=== PATIENT | female | born 1995 | race African-American/Black ===

== ENCOUNTER 2016-11-04 15:13 | Emergency (ER) | payer SELFPAY ==
[~2016-11-04] VITALS: Ht 157.5 cm; Wt 74.8 kg
[2016-11-04 15:33] VITALS: BP 111/58
[2016-11-04 16:52] LABS: Urine Bilirubin Negative (Negative); Urine Blood Negative /uL (Negative); Urine Color Yellow (Yellow); Urine Glucose Normal (Normal); Urine Ketone Negative (Negative); Urine Mucus FEW (None Seen); Urine Nitrite Negative (Negative); Urine RBC 4 /hpf (0 - 4); Urine Squamous Epithelial Cell FEW /hpf (<5); Urine Urobilinogen Normal (Negative); Urine pH 5.5 (5.0-8.0)
[2016-11-04 16:58] LABS: Basophils # (auto) 0.1 uL; Basophils % (auto) 0.5 % (0.0-2.0); CONDITION Y; DEFINITIVE SEE PRINTOUT; Eosinophils # (auto) 0.2 uL; Eosinophils % (auto) 1.8 % (0.0-7.0); Hematocrit 32.7 % (36.0-46.0); Hemoglobin 10.7 g/dL (12.2-16.2); Lymphocytes # (auto) 1.4 uL; Lymphocytes % (auto) 10.8 % (10.0-50.0); Mean Corpuscular Hemoglobin 25.7 pg (28.0-32.0); Mean Corpuscular Hgb Conc. 32.8 g/dL (32.0-36.0); Mean Corpuscular Volume 78.2 fL (80.0-100.0); Mean Platelet Volume 10.1 fL (7.4-10.4); Monocytes % (auto) 7.9 % (0.0-12.0); Neutrophils # (auto) 9.9 uL; Platelet Count (auto) 286 10^3/uL (140-450); Red Cell Distribution Width 15.4 % (11.6-16.0); SUSPECT SEE PRINTOUT; White Blood Cell 12.6 10^3/uL (4.4-10.8)
[2016-11-04 17:20] LABS: BUN/Creatinine Ratio 14.3; Calcium 8.5 mg/dL (8.5-10.1); Potassium 3.8 mmol/L (3.5-5.1)
[2016-11-04] MEDS ORDERED: ACETAMINOPHEN 325 MG TAB PO ONE (17:45)
== END 2016-11-04 17:55 | disposition home or self-care (01) ==
LOC: ER 15:18 → EDBD 15:18 → ER 17:55
DX: Z32.01 Encounter for pregnancy test, result positive (principal); N39.0 Urinary tract infection, site not specified
CPT/HCPCS: 36415; 80048; 81001; 81025; 84702; 85025

== ENCOUNTER 2016-11-14 08:42 | Emergency (ER) | payer SELFPAY ==
[~2016-11-14] VITALS: Ht 157.5 cm; Wt 76.7 kg
[2016-11-14 08:58] VITALS: BP 107/59
[2016-11-14 09:33] LABS: Basophils # (auto) 0 uL; Basophils % (auto) 0.5 % (0.0-2.0); CONDITION Y; DEFINITIVE SEE PRINTOUT; Eosinophils # (auto) 0.2 uL; Eosinophils % (auto) 1.9 % (0.0-7.0); Hematocrit 34.5 % (36.0-46.0); Hemoglobin 11.4 g/dL (12.2-16.2); Lymphocytes # (auto) 1.9 uL; Lymphocytes % (auto) 20.6 % (10.0-50.0); Mean Corpuscular Hemoglobin 25.6 pg (28.0-32.0); Mean Corpuscular Hgb Conc. 32.9 g/dL (32.0-36.0); Mean Corpuscular Volume 77.9 fL (80.0-100.0); Mean Platelet Volume 9.9 fL (7.4-10.4); Monocytes # (auto) 0.7 uL; Monocytes % (auto) 7.4 % (0.0-12.0); Neutrophils # (auto) 6.6 uL; Neutrophils % (auto) 69.6 % (37.0-80.0); Platelet Count (auto) 337 10^3/uL (140-450); Red Cell Distribution Width 15.5 % (11.6-16.0); White Blood Cell 9.4 10^3/uL (4.4-10.8)
[2016-11-14 09:57] LABS: Albumin 3.6 g/dL (3.4-5.0); BUN/Creatinine Ratio 13.3; Bilirubin, Total 0.2 mg/dL (0.2-1.0); Calcium 8.8 mg/dL (8.5-10.1); Potassium 3.9 mmol/L (3.5-5.1); Total Protein 7.9 g/dL (6.4-8.2)
== END 2016-11-14 12:11 | disposition home or self-care (01) ==
LOC: ER 08:42
DX: O03.9 Complete or unspecified spontaneous abortion without complication (principal); Z3A.00 Weeks of gestation of pregnancy not specified; Z86.2 Personal history of diseases of the blood and blood-forming organs and certain disorders involving the immune mechanism
CPT/HCPCS: 36415; 76801; 76817; 80053; 84702; 85025

== ENCOUNTER 2017-05-11 11:26 | Emergency (ER) | payer MEDICAID ==
[~2017-05-11] VITALS: Ht 157.5 cm; Wt 72.6 kg
[2017-05-11 12:23] VITALS: BP 103/65
[2017-05-11 12:26] LABS: Basophils # (auto) 0 uL; Eosinophils # (auto) 0.3 uL; Eosinophils % (auto) 3.1 % (0.0-7.0); Lymphocytes # (auto) 2.4 uL; Mean Corpuscular Hemoglobin 25.9 pg (28.0-32.0); Monocytes # (auto) 0.8 uL; Nucleated Red Blood Cells % 0.1 %
[2017-05-11 12:28] LABS: Basophils % (auto) 0.4 % (0.0-2.0); Hematocrit 35.6 % (36.0-46.0); Hemoglobin 11.6 g/dL (12.2-16.2); Lymphocytes % (auto) 25.7 % (10.0-50.0); Mean Corpuscular Hgb Conc. 32.6 g/dL (32.0-36.0); Mean Corpuscular Volume 79.3 fL (80.0-100.0); Monocytes % (auto) 8.1 % (0.0-12.0); Neutrophils # (auto) 5.9 uL; Neutrophils % (auto) 62.7 % (37.0-80.0); Platelet Count (auto) 258 10^3/uL (140-450); Red Blood Cells 4.48 10^6/uL (4.0-5.20); Red Cell Distribution Width 15.2 % (11.8-14.3); White Blood Cell 9.4 10^3/uL (4.4-10.8)
[2017-05-11 12:45] LABS: Albumin 3.9 g/dL (3.4-5.0); BUN/Creatinine Ratio 12.5; Bilirubin, Total 0.2 mg/dL (0.2-1.0); Calcium 8.9 mg/dL (8.5-10.1); Potassium 3.8 mmol/L (3.5-5.1); Total Protein 7.9 g/dL (6.4-8.2)
[2017-05-11 13:25] LABS: Urine Bacteria FEW /hpf (None Seen); Urine Blood Negative /uL (Negative); Urine Mucus FEW (None Seen); Urine Specific Gravity 1.032 (1.001-1.035); Urine WBC 43 /hpf (0 - 5)
== END 2017-05-11 13:55 | disposition home or self-care (01) ==
LOC: ER 11:26
DX: Z32.01 Encounter for pregnancy test, result positive (principal); N39.0 Urinary tract infection, site not specified; R11.0 Nausea
CPT/HCPCS: 36415; 80053; 81001; 84702; 85025

== ENCOUNTER 2017-06-30 10:38 | Emergency (ER) | payer MEDICAID ==
[~2017-06-30] VITALS: Ht 157.5 cm; Wt 80.7 kg
[2017-06-30 12:54] VITALS: BP 116/76
== END 2017-06-30 13:45 | disposition home or self-care (01) ==
LOC: ER 10:38
DX: O23.42 Unspecified infection of urinary tract in pregnancy, second trimester (principal); Z3A.13 13 weeks gestation of pregnancy
CPT/HCPCS: 76801; 81002

== ENCOUNTER 2018-01-15 02:56 | Observation (INO) | payer MEDICAID ==
[~2018-01-15 02:56] MED LIST: PREN-153 OR
[2018-01-15] MEDS ORDERED: FERR27TA2 PO (22:05)
== END 2018-01-15 03:57 | disposition home or self-care (01) | DRG 566 ==
LOC: LDRP 02:56
PROVIDERS: ADMIT Obstetrics & Gynecology; ATTEND Obstetrics & Gynecology
DX: O62.9 Abnormality of forces of labor, unspecified (principal); O99.89 Other specified diseases and conditions complicating pregnancy, childbirth and the puerperium; M54.9 Dorsalgia, unspecified; Z3A.39 39 weeks gestation of pregnancy
CPT/HCPCS: 59025; G0378

== ENCOUNTER 2018-01-15 21:21 | Observation (INO) | payer MEDICAID ==
[2018-01-15] MEDS ORDERED: FERR27TA2 PO (22:05)
== END 2018-01-16 00:24 | disposition home or self-care (01) | DRG 566 ==
LOC: LDRP 21:21
PROVIDERS: ADMIT Specialist; ATTEND Specialist
DX: O62.9 Abnormality of forces of labor, unspecified (principal); Z3A.39 39 weeks gestation of pregnancy
CPT/HCPCS: 59025; G0378

== ENCOUNTER 2018-01-16 19:40 | Observation (INO) | payer MEDICAID ==
[~2018-01-16 19:40] MED LIST changes: +FERR27TA2 PO
[2018-01-16 21:14] LABS: Urine Bacteria NONE SEEN /hpf (None Seen); Urine Blood 1+ /uL (Negative); Urine Mucus FEW (None Seen); Urine Specific Gravity 1.012 (1.001-1.035); Urine WBC 85 /hpf (0 - 5)
[2018-01-16 21:21] LABS: Alcohol, Urine < 3.0 mg/dL (0-5); Amphetamine Screen, Urine NEGATIVE (NEGATIVE); Barbiturate Scree,Urine NEGATIVE (NEGATIVE); Benzodiazephine Screen, Urine NEGATIVE (NEGATIVE); Cannabinoid Screen, Urine NEGATIVE (NEGATIVE); Cocaine Screen, Urine NEGATIVE (NEGATIVE); Opiate Scree,Urine NEGATIVE (NEGATIVE); Phencyclidine Screen, Urine NEGATIVE (NEGATIVE)
[2018-01-16] MEDS ORDERED: hydrOXYzine HCL 25 MG/ML VL IM ONE ×2 (21:21→21:30)
== END 2018-01-16 22:25 | disposition home or self-care (01) | DRG 566 ==
LOC: LDRP 19:40
PROVIDERS: ADMIT Specialist; ATTEND Specialist
DX: O62.9 Abnormality of forces of labor, unspecified (principal); O26.893 Other specified pregnancy related conditions, third trimester; M54.9 Dorsalgia, unspecified; R10.2 Pelvic and perineal pain; O99.89 Other specified diseases and conditions complicating pregnancy, childbirth and the puerperium; Z3A.39 39 weeks gestation of pregnancy
CPT/HCPCS: 59025; 80307; 81001; 81002; 96372; G0378; J3410

== ENCOUNTER 2018-01-17 14:30 | Observation (INO) | payer MEDICAID | END 2018-01-17 16:00 | disposition home or self-care (01) | DRG 566 | LOC: LDRP 14:30 | PROVIDERS: ADMIT Specialist; ATTEND Specialist | DX: O62.9 Abnormality of forces of labor, unspecified (principal); O48.0 Post-term pregnancy; Z3A.40 40 weeks gestation of pregnancy | CPT/HCPCS: 59025; 76818; 81002; G0378 ==

== ENCOUNTER 2018-01-18 07:20 | Inpatient (IN) | payer MEDICAID ==
[~2018-01-18] VITALS: Ht 157.5 cm; Wt 101.2 kg
[2018-01-18] MEDS ORDERED: LACT. RINGERS/OXYTOCIN 20UNITS 1,000 ML IV SCH (07:44)
[2018-01-18] MEDS ORDERED: LACTATED RINGER'S 1,000 ML IV SCH (07:44)
[2018-01-18] MEDS ORDERED: LIDOCAINE 2% (LOCAL ANESTH.) PF 5ml SDV ID ONE (07:45)
[2018-01-18] MEDS ORDERED: PHISODERM TOP SOLN 240ML BTL TOP PRN (07:45)
[2018-01-18] MEDS ORDERED: NALBUPHINE HCL 10 MG/1ml INJECTION IM PRN (07:45)
[2018-01-18] MEDS ORDERED: WITCH HAZEL-GLYCERIN PAD TOP PRN (07:45)
[2018-01-18] MEDS ORDERED: METHYLERGONOVINE MALEATE 0.2 MG/ML AMP IM PRN (07:45)
[2018-01-18] MEDS ORDERED: DERMOPLAST 60ML BOTTLE TOP PRN (07:45)
[2018-01-18] MEDS ORDERED: CARBOPROST TROMETHAMINE 250 MCG/1ML VIAL IM PRN (07:45)
[2018-01-18 08:29] LABS: Hemoglobin 9.2 g/dL (12.2-16.2); Lymphocytes # (auto) 1.3 uL; Monocytes # (auto) 1.3 uL; Neutrophils # (auto) 10.7 uL; White Blood Cell 13.4 10^3/uL (4.4-10.8)
[2018-01-18] MEDS ORDERED: LIDOCAINE 2% (LOCAL ANESTH.) PF 5ml SDV IJ ONE (08:30)
[2018-01-18] MEDS ORDERED: NALOXONE HCL 0.4 MG/ML VIAL IV ONE ×2 (08:30→09:45)
[2018-01-18] MEDS ORDERED: fentaNYL W ROPIVACAINE 150 ML EPI SCH ×2 (08:30→09:45)
[2018-01-18] MEDS ORDERED: fentaNYL CITRATE 100 MCG/2 ML VL IV ONE (08:30)
[2018-01-18] MEDS ORDERED: ePHEDrine SULFATE 50 MG/ML AMP IV ONE ×2 (08:30→09:45)
[2018-01-18 08:31] LABS: Basophils # (auto) 0.1 uL; Basophils % (auto) 0.4 % (0.0-2.0); Eosinophils # (auto) 0.1 uL; Eosinophils % (auto) 0.4 % (0.0-7.0); Hematocrit 29.7 % (36.0-46.0); Lymphocytes % (auto) 9.6 % (10.0-50.0); Mean Corpuscular Hemoglobin 22.5 pg (28.0-32.0); Mean Corpuscular Volume 72.7 fL (80.0-100.0); Monocytes % (auto) 9.5 % (0.0-12.0); Neutrophils % (auto) 80.1 % (37.0-80.0); Platelet Count (auto) 240 10^3/uL (140-450); Red Blood Cells 4.08 10^6/uL (4.0-5.20); Red Cell Distribution Width 15.8 % (11.8-14.3)
[2018-01-18 08:39] LABS: Urine Bacteria FEW /hpf (None Seen); Urine Blood Negative /uL (Negative); Urine Mucus FEW (None Seen); Urine Specific Gravity 1.028 (1.001-1.035); Urine WBC 82 /hpf (0 - 5)
[2018-01-18 08:42] LABS: INR 0.87 (0.9-1.15); Partial Thromboplastin Time 28.4 sec (23.78-33.04); Prothrombin Time 9.4 sec (9.27-12.13)
[2018-01-18 08:48] LABS: Albumin 2.7 g/dL (3.4-5.0); BUN/Creatinine Ratio 11.5; Bilirubin, Total 0.3 mg/dL (0.2-1.0); Calcium 8.9 mg/dL (8.5-10.1); Potassium 3.8 mmol/L (3.5-5.1); Total Protein 7.4 g/dL (6.4-8.2)
[2018-01-18 08:54] LABS: Alcohol, Urine < 3.0 mg/dL (0-5); Amphetamine Screen, Urine NEGATIVE (NEGATIVE); Barbiturate Scree,Urine NEGATIVE (NEGATIVE); Benzodiazephine Screen, Urine NEGATIVE (NEGATIVE); Cannabinoid Screen, Urine POSITIVE (NEGATIVE); Cocaine Screen, Urine NEGATIVE (NEGATIVE); Opiate Scree,Urine NEGATIVE (NEGATIVE); Phencyclidine Screen, Urine NEGATIVE (NEGATIVE)
[2018-01-18] MEDS ORDERED: SODIUM CHLORIDE 0.9% 500 ML IV PRN (09:44)
[2018-01-18] MEDS ORDERED: ACETAMINOPHEN 325 MG TAB PO PRN (14:45)
[2018-01-18] MEDS ORDERED: ceFAZolin 1GM/50ML 50 ML IV SCH (15:00)
[2018-01-18] MEDS: IBUPROFEN 600 MG TAB PO PRN ×2 (15:58→23:14)
[2018-01-18 19:00] VITALS: BP 117/69
[2018-01-18 23:00] VITALS: BP 123/80
[2018-01-19] MEDS: ceFAZolin 1GM/50ML 50 ML IV SCH ×2 (00:16→08:20)
[2018-01-19 03:00] VITALS: BP 122/82
[2018-01-19 06:06] LABS: RPR Non Reactive (Non Reactive)
[2018-01-19 07:20] VITALS: BP 120/70
[2018-01-19] MEDS: IBUPROFEN 600 MG TAB PO PRN (08:20)
[2018-01-19 11:00] VITALS: BP 119/56
[2018-01-19 15:10] VITALS: BP 127/79
== END 2018-01-19 15:20 | disposition home or self-care (01) | DRG 560 ==
LOC: LDRP 07:20
PROVIDERS: ADMIT Obstetrics & Gynecology; ATTEND Obstetrics & Gynecology
PROC: 10E0XZZ Delivery of Products of Conception, External Approach (ICD-10-PCS; principal; 2018-01-18)
PROC: 0KQM0ZZ Repair Perineum Muscle, Open Approach (ICD-10-PCS; 2018-01-18)
PROC: 0W8NXZZ Division of Female Perineum, External Approach (ICD-10-PCS; 2018-01-18)
PROC: 3E0R3BZ Introduction of Anesthetic Agent into Spinal Canal, Percutaneous Approach (ICD-10-PCS; 2018-01-18)
PROC: 00HU33Z Insertion of Infusion Device into Spinal Canal, Percutaneous Approach (ICD-10-PCS; 2018-01-18)
DX: O70.1 Second degree perineal laceration during delivery (principal); Z37.0 Single live birth; Z3A.40 40 weeks gestation of pregnancy
CPT/HCPCS: 36415; 59025; 59409; 80053; 80307; 81001; 81002; 85025; 85610; 85730; 86592; 86850; 86900; 86901; 96361; J0690; J2001; J2590; J3010

== ENCOUNTER 2024-08-05 13:40 | Emergency (ER) | payer MEDICAID ==
[~2024-08-05] VITALS: Ht 157.5 cm; Wt 88.0 kg
[~2024-08-05 13:40] MED LIST changes: +FERR1TAB31 PO; -FERR27TA2 PO; -PREN-153 OR; +PREN1TAB71 OR
[2024-08-05] MEDS: methylPREDNISolone SOD SUCC 125 MG/2 ML VL IM ONE (15:51)
[2024-08-05] MEDS: ACETAMINOPHEN/CODEINE#3 (300/30mg) TAB PO ONE (15:51)
[2024-08-05] MEDS: cefTRIAXone SOD 1,000 MG VL IM ONE (15:52)
[2024-08-05 15:55] VITALS: BP 111/75; PULSE 80; RESP 16; TEMP 98.2; O2SAT 98
[2024-08-05] MEDS ORDERED: ACE3T PO (16:25)
[2024-08-05] MEDS ORDERED: AMOX500T3 PO (16:25)
--- NOTE | 2024-08-05 16:26 | ED.PDOC ---
Eye-HPI HPI Comments 28 year old F presents for tooth pain. No trauma or injury .Pain located to LUQ. Reports she is currently pending a referral to [facility] for a tooth extraction in his unable to get adequate relief with [id number] Tylenol. Denies fevers chills nausea vomiting diarrhea. Able to eat drink in usual state of health. Denies any airway obstruction Chief Complaint: Tooth Pain Time Seen by MD: 14:13 Primary Care Provider: TALYA Cobb Notes: Nurses Notes, Medications, Allergies Allergies: Coded Allergies: NO KNOWN ALLERGIES (Unverified , 11/04/16) Home Meds Active Scripts Acetaminophen W/ Codeine (Tylenol W/Cod #3) 1 Tab Tb, 1 TAB PO Q6HP PRN for 3 Days, #12 TAB 0 Refills Prov:MARY MUJICADamian Unger LARRY OPERATOR 08/05/24 Amoxicillin Trihydrate (Amoxicillin) 500 Mg Tab, 1 TAB PO BID for 10 Days, #20 TAB 0 Refills Prov:ELSIE MUJICA LARRY OPERATOR 08/05/24 Reported Medications Ferrous Gluconate (IRON) 27 Mg Tab, 27 MG PO, TAB 01/15/18 Vit W/ Ferrous Fumara (PNV PLUS MULTIVI) Plus Tab, 1 OR, TAB 11/26/17 Information Source: Patient Mode of Arrival: Ambulatory Past Medical History PAST MEDICAL HISTORY: Anemia Surgical History: Denies all surgeries OTOLARYNGOLOGY REP History: No Pertinent OTOLARYNGOLOGY REP History Family History Family History: Unknown Social History Smoker: Non-Smoker Lives In: Home All Other Systems: Reviewed and Negative (Per HPI) Physical Exam General Appearance: No Apparent Distress, Normal HEENT: Normal ENT Inspection, Pharynx Normal, TMs Normal, Other (Moist mucous membranes. No signs of dental caries. No airway obstruction. Pain is located to tooth 28) Neck: Full Range of Motion, Non-Tender, Normal, Normal Inspection Respiratory: Chest Non-Tender, Lungs Clear, No Accessory Muscle Use, No Respiratory Distress, Normal Breath Sounds Cardiovascular: No Edema, No JVD, No Murmur, No Gallop, Normal Peripheral Pulses, Regular Rate/Rhythm Breast Exam: Deferred Gastrointestinal: No Organomegaly, Non Tender, No Pulsatile Mass, Normal Bowel Sounds, Soft Genitalia: Deferred Pelvic: Deferred Rectal: Deferred Extremities: No calf tenderness, Normal capillary refill, Normal inspection, Normal range of motion, Non-tender, No pedal edema Musculoskeletal : Apperance: Normal Neurologic: Alert, washery engineer II-XII nml as Tested, No Motor Deficits, Normal Affect, Normal Mood, No Sensory Deficits Cerebellar Function: Normal Reflexes: Normal Skin: Dry, Normal Color, Warm Lymphatic: No Adenopathy Was a procedure done? Was a procedure done?: No EENT DIFF Eye: Other X-Ray, Labs, Meds, VS Vital Signs Date Time Temp Pulse Resp B/P (MAP) Pulse Ox O2 Delivery O2 Flow Rate FiO2 08/05/24 15:55 80 16 98 Room Air 08/05/24 15:55 98.2 80 16 111/75 (87) 98 98.2 08/05/24 14:10 98.2 80 16 111/75 (87) 98 98.2 Current Medications Medications (Trade) Dose Ordered Sig/Dwight Route Start Time Stop Time Status Last Admin Acetaminophen/ Codeine Phosphate (Tylenol W/Cod #3 Tablet) 1 tab ONCE ONCE PO 08/05/24 15:30 08/05/24 15:31 DC 08/05/24 15:51 Ceftriaxone Sodium (Rocephin) 1,000 mg ONCE ONCE IM 08/05/24 15:30 08/05/24 15:31 DC 08/05/24 15:52 Methylprednisolone Sodium Succinate (Solu Medrol) 125 mg ONCE ONCE IM 08/05/24 15:30 08/05/24 15:31 DC 08/05/24 15:51 X-Ray, Labs, Meds, VS Comment The patient is not immunocompromised. There is no evidence of tooth fracture avulsion or bleeding. No evidence of retropharyngeal abscess or peritonsillar abscess. No signs of Marc's angina. Checked the [employer] website, no history of narcotic use within the past year. Will prescribe Arena p.o. for pain management. Education provided on possible side effects of medication including drowsiness, nausea, respiratory distress, etc. Do not drive, operate heavy machinery or make legal decisions while taking medication. Follow-up with your dentist within 24-48 hours Strict return precautions discussed Time of 1ST Reevaluation: 16:22 Reevaluation 1ST: Improved Patient Education/Counseling: Diagnosis, Treatment Family Education/Counseling: Diagnosis, Treatment Departure 1 Departure Time of Disposition: 16:23 Impression: Primary Impression: Tooth pain Disposition: HOME / SELF CARE / HOMELESS Condition: Stable Additional Instructions: Discharge Note: Drink plenty of fluids. Follow up with your primary Dr. Take your prescriptions as ordered. If your condition becomes worse call and follow up with your primary Dr. for instructions or return to the ER if needed. Thank you for visiting [facility]. e-Prescriptions Acetaminophen W/ Codeine (Tylenol W/Cod #3) 1 Tab Tb 1 TAB PO Q6HP PRN for 3 Days, #12 TAB 0 Refills Prov: ELSIE MUJICA NP 08/05/24 Amoxicillin Trihydrate (Amoxicillin) 500 Mg Tab 1 TAB PO BID for 10 Days, #20 TAB 0 Refills Prov: ELSIE MUJICA LARRY OPERATOR 08/05/24 Critical Care Note Critical Care Time?: No Stability Stability form required: No Heart Score Heart Score: Heart Score Response (Comments) Value History N/A 0 EKG N/A 0 Age N/A 0 Risk Factors N/A 0 Troponin N/A 0 Total 0 ELSIE MUJICA NP Aug 05, 2024 16:26
== END 2024-08-05 16:28 | disposition home or self-care (01) ==
LOC: ER 13:40
DX: K08.89 Other specified disorders of teeth and supporting structures (principal); Z79.899 Other long term (current) drug therapy
CPT/HCPCS: 96372; 99284; J0696; J2919